=== PATIENT | female | born 1995 | race Caucasian/White ===

== ENCOUNTER 2016-08-14 02:34 | Emergency (ER) | payer SELFPAY ==
[2016-08-14] MEDS ORDERED: Albuterol-Ipratrop 3 mg / 0.5 (3 ml) UD ONE ×2 (02:42→03:04)
[2016-08-14] MEDS ORDERED: Sodium Chloride 0.9% 1,000 ML IV ONE (03:05)
--- NOTE | 2016-08-14 03:05 | C.PDOC ---
Time Seen by Provider: 08/14/16 03:04 Chief Complaint (Nursing): Shortness Of Breath Past Medical History Vital Signs: Last Vital Signs Temp 97.8 F 08/14/16 02:52 Pulse 110 H 08/14/16 02:52 Resp 26 H 08/14/16 02:52 BP 103/73 08/14/16 02:52 Pulse Ox 95 08/14/16 02:52 - Medical History PMH: Anemia, Asthma Family History: States: Unknown Family Hx - Social History Hx Alcohol Use: No Hx Substance Use: Yes (marijuana) - Immunization History Hx Tetanus Toxoid Vaccination: No Hx Influenza Vaccination: No Hx Pneumococcal Vaccination: No ED Course And Treatment O2 Sat by Pulse Oximetry: 95 Disposition Counseled Patient/Family Regarding: Studies Performed, Diagnosis - Disposition Disposition Time: 03:05
[2016-08-14] MEDS ORDERED: Sodium Chloride 0.9% 1,000 ML ONE (03:07)
[2016-08-14] MEDS: Albuterol-Ipratrop 3 mg / 0.5 (3 ml) UD IH SCH ×3 (03:08→03:47)
--- NOTE | 2016-08-14 03:15 | C.PDOC ---
History Of Present Illness Pt presents with worsening wheezing over the last 3-4 hours. Has used inhaler at home, but still sob. Speaking in complete sentences. No f/c/n/v Time Seen by Provider: 08/14/16 03:04 Chief Complaint (Nursing): Shortness Of Breath History Per: Patient History/Exam Limitations: no limitations Onset/Duration Of Symptoms: Hrs (3) Current Symptoms Are (Timing): Still Present Associated Symptoms: Dyspnea, Cough Preciptating Factors: [place] In Weather, Exposure To: (smoke) Severity: Moderate Pain Scale Rating Of: 5 Recent travel outside of the [place]: No Additional History Per: Patient Past Medical History Reviewed: Historical Data, Nursing Documentation, Vital Signs Vital Signs: Last Vital Signs Temp 97.8 F 08/14/16 02:52 Pulse 110 H 08/14/16 02:52 Resp 26 H 08/14/16 03:30 BP 103/73 08/14/16 02:52 Pulse Ox 95 08/14/16 03:30 - Medical History PMH: Anemia, Asthma Family History: States: No Known Family Hx - Social History Hx Alcohol Use: No Hx Substance Use: Yes (marijuana) - Immunization History Hx Tetanus Toxoid Vaccination: No Hx Influenza Vaccination: No Hx Pneumococcal Vaccination: No Review Of Systems Constitutional: Negative for: Fever, Chills ENT: Negative for: Throat Pain Cardiovascular: Negative for: Chest Pain Respiratory: Positive for: Cough, Shortness of Breath, Wheezing Gastrointestinal: Negative for: Nausea, Vomiting, Abdominal Pain Musculoskeletal: Negative for: Back Pain Skin: Negative for: Rash, Lesions, Jaundice, Bruising Neurological: Negative for: Weakness Psych: Negative for: Anxiety Physical Exam - Physical Exam Appears: Non-toxic Skin: Normal Color Oral Mucosa: Moist Neck: Supple Chest: Symmetrical Cardiovascular: Rhythm Regular Respiratory: Decreased Breath Sounds, Wheezing Gastrointestinal/Abdominal: Soft, No Tenderness, No Distention Back: Normal Inspection Extremity: Normal ROM Neurological/Psych: Oriented x3, Normal Speech, Normal Cognition Gait: Steady ED Course And Treatment O2 Sat by Pulse Oximetry: 95 Pulse Ox Interpretation: Normal Progress Note: alison hartman Reevaluation Time: 04:29 Reassessment Condition: Improved Critical Care Time - Critical Care Note Total Time (in mins): 30 Documented critical care: time excludes all time spent performing seperately billable procedures. Disposition Counseled Patient/Family Regarding: Studies Performed, Diagnosis, Need For Followup, Rx Given - Disposition Referrals: Virgilio Guadalupe MD [Staff Provider] - Disposition: HOME/ ROUTINE Disposition Time: 03:15 Condition: FAIR Prescriptions: Albuterol HFA [Ventolin HFA 90 mcg/actuation (8 g)] 2 puff IH [id number] #1 puff Prednisone [Deltasone] 20 mg PO DAILY #5 tablet Instructions: Asthma (DC) - Clinical Impression Clinical Impression: Exacerbation of asthma
[2016-08-14] MEDS ORDERED: Albuterol-Ipratrop 3 mg / 0.5 (3 ml) UD INH STA (04:35)
[2016-08-14 05:06] VITALS: BP 116/72; PULSE 156; RESP 20; TEMP 98.1; O2SAT 98
== END 2016-08-14 05:05 | disposition home or self-care (01) ==
LOC: C.ER 02:34
DX: J45.901 Unspecified asthma with (acute) exacerbation (principal)
CPT/HCPCS: 94150; 94640; 96374; 99284; J2930; J7040

== ENCOUNTER 2017-06-28 08:54 | Observation (INO) | payer MEDICAID, OTHER ==
[2017-06-28 09:04] VITALS: BMI 22.3
[2017-06-28] MEDS ORDERED: Sodium Chloride 0.9% 1,000 ML IV ONE (09:19)
[2017-06-28 09:43] LABS: BASO % 0.6 % (0.0-2.0); EOS % 1.1 % (0.0-4.0); LYMPH # 0.7 K/uL (1.0-4.3); LYMPH % 27.9 % (20.0-40.0); MEAN CORPUSCULAR HEMOGLOBIN 23.4 pg (27.0-31.0); MEAN CORPUSCULAR HGB CONC 32.2 g/dL (33.0-37.0); MEAN PLATELET VOLUME 8.7 fL (7.2-11.7); MONO # 0.4 K/uL (0.0-0.8); NEUT # 1.5 K/uL (1.8-7.0); NEUT % 56.4 % (50.0-75.0); NRBC % 0.1 % (0.0-2.0); RBC 5.13 Mil/uL (3.80-5.20); RED CELL DISTRIBUTION WIDTH 18.4 % (11.5-14.5); WHITE BLOOD COUNT 2.6 K/uL (4.8-10.8)
--- NOTE | 2017-06-28 09:43 | RAD ---
HISTORY: SOB COMPARISON: Chest x-ray performed 10/14/15 TECHNIQUE: Chest, one view. FINDINGS: LUNGS: Subtle opacity at the left lung base may reflect atelectasis or infiltrate. Please note that chest x-ray has limited sensitivity for the detection of pulmonary masses. PLEURA: No significant pleural effusion identified. No definite pneumothorax . CARDIOVASCULAR: Heart size appears within normal limits. OSSEOUS STRUCTURES: No acute osseous abnormality identified. VISUALIZED UPPER ABDOMEN: Unremarkable. OTHER FINDINGS: None. IMPRESSION: Subtle opacity at the left lung base may reflect atelectasis or infiltrate. Correlate clinically.
[2017-06-28 09:46] LABS: HCG,QUALITATIVE URINE NEGATIVE (NEGATIVE)
[2017-06-28 09:48] LABS: MEAN CELL VOLUME 72.7 fL (81.0-99.0)
[2017-06-28] MEDS ORDERED: Sodium Chloride 0.9% 1,000 ML ONE ×3 (09:55→12:34)
[2017-06-28 09:57] LABS: ALB/GLOB RATIO 1.3 (1.0-2.1); ALBUMIN 4.4 g/dL (3.5-5.0); ALT/SGPT 25 U/L (9-52); AST/SGOT 29 U/L (14-36); BLOOD UREA NITROGEN 9 mg/dL (7-17); CALCIUM 8.9 mg/dl (8.6-10.4); GFR AFRICAN-AMERICAN > 60; GFR NON-AFRICAN AMERICAN > 60; SQUAMOUS EPITHIAL 48 /hpf (0-5); URINE BACTERIA RARE (<OCC); URINE BILIRUBIN NEGATIVE (NEGATIVE); URINE BLOOD NEGATIVE (NEGATIVE); URINE CLARITY Hazy (Clear); URINE COLOR Yellow (YELLOW); URINE GLUCOSE (UA) NORMAL (Normal); URINE LEUKOCYTE ESTERASE NEG Leu/uL (Negative); URINE NITRATE NEGATIVE (NEGATIVE); URINE PROTEIN 1+ mg/dL (NEGATIVE); URINE UROBILINOGEN NORMAL mg/dL (0.2-1.0)
[2017-06-28 10:07] LABS: VENOUS BLOOD GAS BASE EXCESS -2.4 mmol/L (0.0-2.0); VENOUS BLOOD GAS PCO2 42 mmHg (40-60); VENOUS BLOOD GAS PO2 24 mm/Hg (30-55); VENOUS BLOOD PH 7.35 (7.32-7.43)
[2017-06-28] MEDS ORDERED: Albuterol 0.083% Inhal Sol (2.5 mg/3 mL) UD IH STA (10:16)
--- NOTE | 2017-06-28 10:23 | C.PDOC ---
History Of Present Illness 22 y/o female with PMHx of Anemia and Asthma presents to ED with complaints of generalized weakness, nausea, fever and cough for 2 days. Patient has history of pneumonia last month with admission to hospital. Patient notes sick contacts at home and denies abdominal pain, sob, diarrhea or any other complaints at this time. Chief Complaint (Nursing): Cough, Cold, Congestion History Per: Patient History/Exam Limitations: no limitations Onset/Duration Of Symptoms: Days Current Symptoms Are (Timing): Still Present Past Medical History Reviewed: Historical Data, Nursing Documentation, Vital Signs Vital Signs: Last Vital Signs Temp 99.5 F 06/28/17 09:04 Pulse 98 H 06/28/17 09:52 Resp 26 H 06/28/17 09:52 BP 103/58 L 06/28/17 09:52 Pulse Ox 95 06/28/17 10:49 - Medical History PMH: Anemia, Asthma Surgical History: No Surg Hx - [facility] Procedures INTRODUCTION OF SERUM/TOX/VACCINE INTO MUSCLE, PERC APPROACH (05/06/17) Family History: States: No Known Family Hx - Social History Hx Alcohol Use: No Hx Substance Use: No - Immunization History Hx Tetanus Toxoid Vaccination: No Hx Influenza Vaccination: Yes Hx Pneumococcal Vaccination: No Review Of Systems Constitutional: Positive for: Fever. Negative for: Chills Respiratory: Positive for: Cough Gastrointestinal: Positive for: Nausea. Negative for: Vomiting, Abdominal Pain , Diarrhea Neurological: Positive for: Weakness Physical Exam - Physical Exam Appears: Non-toxic, No Acute Distress Skin: Warm, Dry, Pale Head: Atraumatic, Normacephalic Eye(s): bilateral: Normal Inspection, EOMI Ear(s): Bilateral: Normal Nose: Normal Oral Mucosa: Moist Throat: Normal, No Erythema, No Exudate Neck: Supple Chest: Symmetrical Cardiovascular: Rhythm Regular Respiratory: Normal Breath Sounds, No Accessory Muscle Use, No Rales, No Rhonchi , No Wheezing Gastrointestinal/Abdominal: Soft, No Tenderness, No Guarding, No Rebound Neurological/Psych: Oriented x3 Gait: Steady ED Course And Treatment - Laboratory Results Result Diagrams: 06/28/17 09:38 06/28/17 09:38 O2 Sat by Pulse Oximetry: 95 (RA) Pulse Ox Interpretation: Normal - Other Rad CXR X-Ray: Viewed By Me, Read By Radiologist Interpretation: HISTORY: SOB. COMPARISON: Chest x-ray performed 10/14/15. TECHNIQUE: Chest, one view. FINDINGS: LUNGS: Subtle opacity at the left lung base may reflect atelectasis or infiltrate. Please note that chest x-ray has limited sensitivity for the detection of pulmonary masses. PLEURA: No significant pleural effusion identified. No definite pneumothorax . CARDIOVASCULAR: Heart size appears within normal limits. OSSEOUS STRUCTURES: No acute osseous abnormality identified. VISUALIZED UPPER ABDOMEN: Unremarkable. OTHER FINDINGS: None. IMPRESSION: Subtle opacity at the left lung base may reflect atelectasis or infiltrate. Correlate clinically. Progress Note: Albuterol, Toradol, Zofran, Iv fluids administered. Bisque Cleaner and Blood culture. On re evaluation patient state she has a headache and difficulty breathing. Disposition - Disposition Forms: [employer] ([employer]) - PA / DIRECTOR WRITING / Resident Statement MD/DO has reviewed & agrees with the documentation as recorded. - Scribe Statement The provider has reviewed the documentation as recorded by the Daliaibmichela Estevez All medical record entries made by the Daliaibe were at my direction and personally dictated by me. I have reviewed the chart and agree that the record accurately reflects my personal performance of the history, physical exam, medical decision making, and the department course for this patient. I have also personally directed, reviewed, and agree with the discharge instructions and disposition.
[2017-06-28] MEDS ORDERED: Albuterol 0.083% Inhal Sol (2.5 mg/3 mL) UD ONE ×2 (10:58→13:54)
[2017-06-28] MEDS: Sodium Chloride 0.9% 1,000 ML IV ONE ×2 (10:58→18:46)
[2017-06-28] MEDS ORDERED: Azithromycin 500 MG in Sodium Chloride 0.9% 250 ML IVPB STA (12:22)
[2017-06-28] MEDS: Sodium Chloride 0.9% 1,000 ML IV SCH (12:32)
[2017-06-28] MEDS: Albuterol 0.083% Inhal Sol (2.5 mg/3 mL) UD INH SCH ×2 (13:59→20:03)
[2017-06-28 17:10] VITALS: RESP 20
--- NOTE | 2017-06-28 23:46 | CP.PCM.HP ---
History of Present Illness - History of Present Illness History of Present Illness: Chief Complaint: Cough, Cold, Congestion, shortness of breath HPI: 22 y/o female with PMHx of Anemia and Bronchial Asthma complaint with diet, medication and follow up presents to ED with complaints of generalized weakness, nausea, fever and cough for 2 days. Patient has history of pneumonia last month with admission to hospital. Patient notes sick contacts at home and denies abdominal pain, sob, diarrhea or any other complaints at this time. Present on Admission - Present on Admission Any Indicators Present on Admission: Yes Review of Systems - Review of Systems Systems not reviewed;Unavailable: Acuity of Condition - Constitutional Constitutional: Anorexia, Fatigue, Fever, Lethargy, Malaise - EENT Eyes: absent: As Per HPI, Blind Spots, Blurred Vision, Change in Vision, Decreased Night Vision, Diplopia, Discharge, Dry Eye, Exophthalmos, Floaters, Irritation, Itchy Eyes, Loss of Peripheral Vision, Pain, Photophobia, Requires Corrective Lenses, Sees Flashes, Spots in Vision, Tunnel Vision, Other Visual Disturbances, Loss of Vision, Other Nose/Mouth/Throat: Nasal Congestion, Nasal Discharge, Dry Mouth - Cardiovascular Cardiovascular: absent: As Per HPI, Acrocyanosis, Chest Pain, Chest Pain at Rest , Chest Pain with Activity, Claudication, Diaphoresis, Dyspnea, Dyspnea on Exertion, Edema, Irregular Heart Rhythm, Pain Radiating to Arm/Neck/Jaw, Leg Edema, Leg Ulcers, Lightheadedness, Orthopnea, Palpitations, Paroxysmal Nocturnal Dyspnea, Pedal Edema, Radiating Pain, Rapid Heart Rate, Slow Heart Rate, Syncope, Other - Respiratory Respiratory: Cough, Dyspnea - Gastrointestinal Gastrointestinal: absent: As Per HPI, Abdominal Pain, Belching, Bloating, Change in Bowel Habits, Change in Stool Character, Coffee Ground Emesis, Constipation, Cramping, Diarrhea, Dyspepsia, Dysphagia, Early Satiety, Excessive Flatus, Fecal Incontinence, Heartburn, Hematemesis, Hematochezia, Loose Stools, Melena, Nausea, Odynophagia, Temesmus, Vomiting, Other - Genitourinary Genitourinary: absent: As Per HPI, Change in Urinary Stream, Difficulty Urinating, Dysuria, Flank Pain, Hematuria, Pyuria, Nocturia, Urinary Incontinence, Urinary Frequency, Urinary Hesitance, Urinary Urgency, Voiding Freq/Small Amts, Freq UTI, Hx Renal/Bladder Calculi, Hx /Renal Surgery, Bladder Distension, Other Past Patient History - Infectious Disease Hx of Infectious Diseases: None - Past Medical History & Family History Past Medical History?: Yes - Past Social History Smoking Status: Never Smoked - CARDIAC Hx Cardiac Disorders: No - PULMONARY Hx Asthma: Yes - NEUROLOGICAL Hx Neurological Disorder: No - HEENT Hx HEENT Problems: No - RENAL Hx Chronic Kidney Disease: No - ENDOCRINE/METABOLIC Hx Endocrine Disorders: No - HEMATOLOGICAL/ONCOLOGICAL Hx Anemia: Yes - INTEGUMENTARY Hx Dermatological Problems: No - MUSCULOSKELETAL/RHEUMATOLOGICAL Hx Musculoskeletal Disorders: No - GASTROINTESTINAL Hx Gastrointestinal Disorders: No - GENITOURINARY/GYNECOLOGICAL Hx Genitourinary Disorders: No - PSYCHIATRIC Hx Substance Use: No - SURGICAL HISTORY Hx Surgeries: No - ANESTHESIA Hx Anesthesia: No Meds Allergies/Adverse Reactions: Allergies Allergy/AdvReac Type Severity Reaction Status Date / Time No Known Allergies Allergy Verified 06/28/17 09:03 Physical Exam - Constitutional Appears: No Acute Distress - Head Exam Head Exam: ATRAUMATIC, NORMAL INSPECTION, NORMOCEPHALIC - Eye Exam Eye Exam: EOMI, Normal appearance, PERRL Pupil Exam: NORMAL ACCOMODATION, PERRL - Respiratory Exam Respiratory Exam: Decreased Breath Sounds, Rhonchi - Cardiovascular Exam Cardiovascular Exam: Tachycardia, +S1, +S2 - Psychiatric Exam Psychiatric exam: Anxious - Skin Skin Exam: Dry, Intact, Normal Color, Warm Results - Vital Signs Recent Vital Signs: Last Vital Signs Temp 98.2 F 06/28/17 17:10 Pulse 88 06/28/17 17:10 Resp 20 06/28/17 17:10 BP 97/61 L 06/28/17 17:10 Pulse Ox 95 06/28/17 17:10 - Labs Result Diagrams: 06/29/17 07:19 06/29/17 07:19 Labs: Laboratory Results - last 24 hr 06/28/17 06/28/17 06/28/17 09:38 09:38 09:38 WBC 2.6 L RBC 5.13 Hgb 12.0 Hct 37.3 MCV 72.7 L D MCH 23.4 L MCHC 32.2 L RDW 18.4 H Plt Count 255 MPV 8.7 Neut % (Auto) 56.4 Lymph % (Auto) 27.9 [place] % (Auto) 14.0 H Eos % (Auto) 1.1 Baso % (Auto) 0.6 Neut # 1.5 L Lymph # 0.7 L [place] # 0.4 Eos # 0.0 Baso # 0.0 pO2 VBG pH VBG pCO2 VBG HCO3 VBG Total CO2 VBG O2 Sat (Calc) VBG Base Excess VBG Potassium Glucose Lactate Sodium 138 Potassium 4.4 Chloride 102 Carbon Dioxide 24 Anion Gap 17 BUN 9 Creatinine 0.7 Est GFR ( Amer) > 60 Est GFR (Non-Af Amer) > 60 Random Glucose 93 Calcium 8.9 Total Bilirubin 0.6 AST 29 ALT 25 Alkaline Phosphatase 53 Total Protein 7.8 Albumin 4.4 Globulin 3.4 Albumin/Globulin Ratio 1.3 Venous Blood Potassium Urine Color Yellow Urine Clarity Hazy Urine pH 5.0 Ur Specific [place] 1.026 Urine Protein 1+ H Urine Glucose (UA) Normal Urine Ketones 1+ H Urine Blood Negative Urine Nitrate Negative Urine Bilirubin Negative Urine Urobilinogen Normal Ur Leukocyte Esterase Neg Urine WBC (Auto) 3 Urine RBC (Auto) 4 H Ur Squamous Epith Cells 48 H Urine Bacteria Rare Urine HCG, Qual Negative Influenza Typ A,B (EIA) 06/28/17 06/28/17 09:43 10:01 WBC RBC Hgb Hct MCV MCH MCHC RDW Plt Count MPV Neut % (Auto) Lymph % (Auto) [place] % (Auto) Eos % (Auto) Baso % (Auto) Neut # Lymph # [place] # Eos # Baso # pO2 24 L VBG pH 7.35 VBG pCO2 42 VBG HCO3 21.5 VBG Total CO2 24.5 VBG O2 Sat (Calc) 46.7 VBG Base Excess -2.4 L VBG Potassium 3.7 Glucose 85 Lactate 1.2 Sodium 141.0 Potassium Chloride 105.0 Carbon Dioxide Anion Gap BUN Creatinine Est GFR ( Amer) Est GFR (Non-Af Amer) Random Glucose Calcium Total Bilirubin AST ALT Alkaline Phosphatase Total Protein Albumin Globulin Albumin/Globulin Ratio Venous Blood Potassium 3.7 Urine Color Urine Clarity Urine pH Ur Specific [place] Urine Protein Urine Glucose (UA) Urine Ketones Urine Blood Urine Nitrate Urine Bilirubin Urine Urobilinogen Ur Leukocyte Esterase Urine WBC (Auto) Urine RBC (Auto) Ur Squamous Epith Cells Urine Bacteria Urine HCG, Qual Influenza Typ A,B (EIA) Negative for flu a/b Assessment & Plan (1) Asthma exacerbation Assessment and Plan: pt has been started on medical management Rule out pnemonia Status: Acute (2) Pneumonia Assessment and Plan: less likely Status: Acute
[2017-06-29] MEDS ORDERED: guaiFENesin 100 mg/5 ml Syrup UD PO ONE (00:36)
[2017-06-29] MEDS: Albuterol 0.083% Inhal Sol (2.5 mg/3 mL) UD INH SCH ×4 (01:18→19:19)
[2017-06-29] MEDS: Sodium Chloride 0.9% 1,000 ML IV SCH ×4 (06:30→21:26)
[2017-06-29 08:01] LABS: BLOOD UREA NITROGEN 6 mg/dL (7-17); CALCIUM 8.3 mg/dl (8.6-10.4); GFR AFRICAN-AMERICAN > 60; GFR NON-AFRICAN AMERICAN > 60
[2017-06-29 08:07] LABS: BASO % 0.6 % (0.0-2.0); EOS # 0.1 K/uL (0.0-0.7); EOS % 5.6 % (0.0-4.0); LYMPH # 0.9 K/uL (1.0-4.3); LYMPH % 42.1 % (20.0-40.0); MEAN CELL VOLUME 72.2 fL (81.0-99.0); MEAN CORPUSCULAR HEMOGLOBIN 23.4 pg (27.0-31.0); MEAN CORPUSCULAR HGB CONC 32.4 g/dL (33.0-37.0); MEAN PLATELET VOLUME 9.2 fL (7.2-11.7); MONO # 0.2 K/uL (0.0-0.8); MONO % 10.9 % (0.0-10.0); NEUT # 0.9 K/uL (1.8-7.0); NEUT % 40.8 % (50.0-75.0); NRBC % 0.4 % (0.0-2.0); RBC 4.22 Mil/uL (3.80-5.20); WHITE BLOOD COUNT 2.2 K/uL (4.8-10.8)
[2017-06-29 08:14] LABS: HEMOGLOBIN 9.9 g/dL (11.0-16.0)
[2017-06-29] MEDS: Azithromycin 500 MG in Sodium Chloride 0.9% 250 ML IVPB SCH (10:12)
[2017-06-29] MEDS: guaiFENesin 100 mg/5 ml Syrup UD PO SCH ×2 (10:12→14:08)
--- NOTE | 2017-06-29 12:00 | CP.PCM.PN ---
Subjective - Date & Time of Evaluation Date of Evaluation: 06/29/17 Time of Evaluation: 19:40 - Subjective Subjective: pt seen and examined today, less cough, less short of breath, on Iv fluids and medical management Objective - Vital Signs/Intake and Output Vital Signs (last 24 hours): Temp Pulse Resp BP Pulse Ox 98.7 F 82 20 102/64 95 06/29/17 07:53 06/29/17 07:53 06/29/17 07:53 06/29/17 07:53 06/29/17 07:53 Intake and Output: 06/29/17 06/29/17 06:59 18:59 Intake Total 1900 Balance 1900 - Medications Medications: Current Medications Acetaminophen (Tylenol 325mg Tab) 650 mg PO Q4 PRN PRN Reason: Pain, moderate (4-7) Last Admin: 06/29/17 00:15 Dose: 650 mg Albuterol Sulfate (Albuterol 0.083% Inhal Agueda (2.5 Mg/3 Ml) Ud) 2.5 mg INH RQ6 [facility] Last Admin: 06/29/17 07:25 Dose: Not Given Guaifenesin (Robitussin) 100 mg PO QID [facility] Last Admin: 06/29/17 10:12 Dose: 100 mg Ceftriaxone Sodium 1 gm/ (Sodium Chloride) 100 mls @ 100 mls/hr IVPB Q24H [facility] Last Admin: 06/28/17 12:58 Dose: 100 mls/hr Sodium Chloride (Sodium Chloride 0.9%) 1,000 mls @ 100 mls/hr IV .Q10H [facility] Last Admin: 06/29/17 10:12 Dose: Not Given Azithromycin 500 mg/ Sodium (Chloride) 250 mls @ 250 mls/hr IVPB DAILY [facility] Last Admin: 06/29/17 10:12 Dose: 250 mls/hr - Labs Labs: 06/29/17 07:19 06/29/17 07:19 - Constitutional Appears: No Acute Distress - Head Exam Head Exam: ATRAUMATIC, NORMAL INSPECTION, NORMOCEPHALIC - Eye Exam Eye Exam: EOMI, Normal appearance, PERRL Pupil Exam: NORMAL ACCOMODATION, PERRL - Respiratory Exam Respiratory Exam: Decreased Breath Sounds, Rales, Rhonchi - Cardiovascular Exam Cardiovascular Exam: REGULAR RHYTHM, +S1, +S2. absent: Murmur - GI/Abdominal Exam GI & Abdominal Exam: Soft, Normal Bowel Sounds. absent: Tenderness Assessment and Plan (1) Asthma exacerbation Status: Acute (2) Pneumonia Status: Acute
--- NOTE | 2017-06-29 12:21 | CP.PCM.PN ---
Subjective - Date & Time of Evaluation Date of Evaluation: 06/29/17 Time of Evaluation: 18:40 - Subjective Subjective: pt seen and examined Objective - Vital Signs/Intake and Output Vital Signs (last 24 hours): Temp Pulse Resp BP Pulse Ox 98.7 F 82 20 102/64 95 06/29/17 07:53 06/29/17 07:53 06/29/17 07:53 06/29/17 07:53 06/29/17 07:53 Intake and Output: 06/29/17 06/29/17 06:59 18:59 Intake Total 1900 Balance 1900 - Medications Medications: Current Medications Acetaminophen (Tylenol 325mg Tab) 650 mg PO Q4 PRN PRN Reason: Pain, moderate (4-7) Last Admin: 06/29/17 00:15 Dose: 650 mg Albuterol Sulfate (Albuterol 0.083% Inhal Agueda (2.5 Mg/3 Ml) Ud) 2.5 mg INH RQ6 [facility] Last Admin: 06/29/17 07:25 Dose: Not Given Guaifenesin (Robitussin) 100 mg PO QID [facility] Last Admin: 06/29/17 10:12 Dose: 100 mg Ceftriaxone Sodium 1 gm/ (Sodium Chloride) 100 mls @ 100 mls/hr IVPB Q24H [facility] Last Admin: 06/28/17 12:58 Dose: 100 mls/hr Sodium Chloride (Sodium Chloride 0.9%) 1,000 mls @ 100 mls/hr IV .Q10H [facility] Last Admin: 06/29/17 10:12 Dose: Not Given Azithromycin 500 mg/ Sodium (Chloride) 250 mls @ 250 mls/hr IVPB DAILY [facility] Last Admin: 06/29/17 10:12 Dose: 250 mls/hr - Labs Labs: 06/29/17 07:19 06/29/17 07:19
[2017-06-29 16:23] LABS: FOLATE 14.8 ng/mL
[2017-06-29] MEDS: Promethazine 12.5 mg/10 ml Syrup PO PRN ×2 (16:49→22:36)
[2017-06-30] MEDS: Albuterol 0.083% Inhal Sol (2.5 mg/3 mL) UD INH SCH ×2 (01:19→07:31)
[2017-06-30] MEDS: Sodium Chloride 0.9% 1,000 ML IV SCH ×2 (04:40→07:03)
[2017-06-30] MEDS: Promethazine 12.5 mg/10 ml Syrup PO PRN (04:45)
[2017-06-30 08:23] VITALS: BP 96/60; PULSE 78; TEMP 97.3; O2SAT 98
[2017-06-30] MEDS: Azithromycin 500 MG in Sodium Chloride 0.9% 250 ML IVPB SCH (10:28)
--- NOTE | 2017-06-30 16:38 | CP.PCM.PN ---
Objective - Vital Signs/Intake and Output Vital Signs (last 24 hours): Temp Pulse Resp BP Pulse Ox 97.3 F L 78 20 96/60 L 98 06/30/17 08:21 06/30/17 08:21 06/30/17 08:21 06/30/17 08:21 06/30/17 08:21 Intake and Output: 06/30/17 06/30/17 06:59 18:59 Intake Total 1900 Balance 1900 - Labs Labs: 06/29/17 07:19 06/29/17 07:19 Assessment and Plan - Assessment and Plan (Free Text) Assessment: Patient is seen and examined. Alert and orientedx3, cough has been.
--- NOTE | 2017-06-30 22:31 | CP.PCM.DIS ---
Provider - Provider Date of Admission: 06/28/17 12:23 Attending physician: Virgilio Guadalupe MD Diagnosis - Discharge Diagnosis (1) Asthma exacerbation Status: Acute (2) Pneumonia Status: Acute Hospital Course - Lab Results Lab Results: Micro Results 06/28/17 10:15 Blood Blood Culture - Preliminary NO GROWTH AFTER 48 HOURS 06/28/17 09:45 Blood Blood Culture - Preliminary NO GROWTH AFTER 48 HOURS Most Recent Lab Values WBC 2.2 K/uL (4.8-10.8) L 06/29/17 07:19 RBC 4.22 Mil/uL (3.80-5.20) 06/29/17 07:19 Hgb 9.9 g/dL (11.0-16.0) L D 06/29/17 07:19 Hct 30.5 % (34.0-47.0) L 06/29/17 07:19 MCV 72.2 fL (81.0-99.0) L 06/29/17 07:19 MCH 23.4 pg (27.0-31.0) L 06/29/17 07:19 MCHC 32.4 g/dL (33.0-37.0) L 06/29/17 07:19 RDW 18.0 % (11.5-14.5) H 06/29/17 07:19 Plt Count 201 K/uL (130-400) 06/29/17 07:19 MPV 9.2 fL (7.2-11.7) 06/29/17 07:19 Neut % (Auto) 40.8 % (50.0-75.0) L 06/29/17 07:19 Lymph % (Auto) 42.1 % (20.0-40.0) H 06/29/17 07:19 [place] % (Auto) 10.9 % (0.0-10.0) H 06/29/17 07:19 Eos % (Auto) 5.6 % (0.0-4.0) H 06/29/17 07:19 Baso % (Auto) 0.6 % (0.0-2.0) 06/29/17 07:19 Neut # (Auto) 0.9 K/uL (1.8-7.0) L 06/29/17 07:19 Lymph # (Auto) 0.9 K/uL (1.0-4.3) L 06/29/17 07:19 [place] # (Auto) 0.2 K/uL (0.0-0.8) 06/29/17 07:19 Eos # (Auto) 0.1 K/uL (0.0-0.7) 06/29/17 07:19 Baso # (Auto) 0.0 K/uL (0.0-0.2) 06/29/17 07:19 Retic Count 0.5 % (0.5-1.5) 06/29/17 15:07 pO2 24 mm/Hg (30-55) L 06/28/17 10:01 VBG pH 7.35 (7.32-7.43) 06/28/17 10:01 VBG pCO2 42 mmHg (40-60) 06/28/17 10:01 VBG HCO3 21.5 mmol/L 06/28/17 10:01 VBG Total CO2 24.5 mmol/L (22-28) 06/28/17 10:01 VBG O2 Sat (Calc) 46.7 % (40-65) 06/28/17 10:01 VBG Base Excess -2.4 mmol/L (0.0-2.0) L 06/28/17 10:01 VBG Potassium 3.7 mmol/L (3.6-5.2) 06/28/17 10:01 Sodium 141.0 mmol/l (132-148) 06/28/17 10:01 Chloride 105.0 mmol/L (98-107) 06/28/17 10:01 Glucose 85 mg/dl (65-105) 06/28/17 10:01 Lactate 1.2 mmol/L (0.7-2.1) 06/28/17 10:01 Sodium 136 mmol/L (132-148) 06/29/17 07:19 Potassium 4.1 mmol/L (3.6-5.2) 06/29/17 07:19 Chloride 102 mmol/L (98-107) 06/29/17 07:19 Carbon Dioxide 24 mmol/L (22-30) 06/29/17 07:19 Anion Gap 14 (10-20) 06/29/17 07:19 BUN 6 mg/dL (7-17) L 06/29/17 07:19 Creatinine 0.6 mg/dL (0.7-1.2) L 06/29/17 07:19 Est GFR ( Amer) > 60 06/29/17 07:19 Est GFR (Non-Af Amer) > 60 06/29/17 07:19 Random Glucose 80 mg/dL (65-105) 06/29/17 07:19 Calcium 8.3 mg/dl (8.6-10.4) L 06/29/17 07:19 Total Bilirubin 0.6 mg/dL (0.2-1.3) 06/28/17 09:38 AST 29 U/L (14-36) 06/28/17 09:38 ALT 25 U/L (9-52) 06/28/17 09:38 Alkaline Phosphatase 53 U/L (38-126) 06/28/17 09:38 Total Protein 7.8 g/dL (6.3-8.3) 06/28/17 09:38 Albumin 4.4 g/dL (3.5-5.0) 06/28/17 09:38 Globulin 3.4 gm/dL (2.2-3.9) 06/28/17 09:38 Albumin/Globulin Ratio 1.3 (1.0-2.1) 06/28/17 09:38 Folate 14.8 ng/mL 06/29/17 15:01 TSH 3rd Generation 0.61 mIU/L (0.46-4.68) 06/29/17 15:01 Venous Blood Potassium 3.7 mmol/L (3.6-5.2) 06/28/17 10:01 Urine Color Yellow (YELLOW) 06/28/17 09:38 Urine Clarity Hazy (Clear) 06/28/17 09:38 Urine pH 5.0 (5.0-8.0) 06/28/17 09:38 Ur Specific [place] 1.026 (1.003-1.030) 06/28/17 09:38 Urine Protein 1+ mg/dL (NEGATIVE) H 06/28/17 09:38 Urine Glucose (UA) Normal mg/dL (Normal) 06/28/17 09:38 Urine Ketones 1+ mg/dL (NEGATIVE) H 06/28/17 09:38 Urine Blood Negative (NEGATIVE) 01/30/18 09:38 Urine Nitrate Negative (NEGATIVE) 06/28/17 09:38 Urine Bilirubin Negative (NEGATIVE) 06/28/17 09:38 Urine Urobilinogen Normal mg/dL (0.2-1.0) 06/28/17 09:38 Ur Leukocyte Esterase Neg [place]arlene/uL (Negative) 06/28/17 09:38 Urine WBC (Auto) 3 /hpf (0-5) 06/28/17 09:38 Urine RBC (Auto) 4 /hpf (0-3) H 06/28/17 09:38 Ur Squamous Epith Cells 48 /hpf (0-5) H 06/28/17 09:38 Urine Bacteria Rare (<OCC) 06/28/17 09:38 Urine HCG, Qual Negative (NEGATIVE) 06/28/17 09:38 Influenza Typ A,B (EIA) Negative for flu a/b (NEGATIVE) 06/28/17 09:43 Discharge Exam - Head Exam Head Exam: ATRAUMATIC, NORMAL INSPECTION, NORMOCEPHALIC Discharge Plan - Discharge Medications Prescriptions: Levofloxacin [Levaquin] 500 mg PO DAILY #5 tablet - Follow Up Plan Condition: GOOD Disposition: HOME/ ROUTINE Instructions: Levofloxacin (By mouth), Asthma (DC), Viral Pneumonia (DC), How Your Lungs Work (DC)
--- NOTE | 2017-07-01 04:19 | CARD ---
APPROVED REPORT EKG Measurement Heart [id number] <Conclusion> Sinus tachycardia Otherwise normal ECG
== END 2017-06-30 13:02 | disposition home or self-care (01) ==
LOC: C.ER 08:54 → C.9E 12:23 → C.3T 15:57
PROVIDERS: ADMIT Internal Medicine; ATTEND Internal Medicine
DX: J18.9 Pneumonia, unspecified organism (principal); J45.901 Unspecified asthma with (acute) exacerbation; Z87.01 Personal history of pneumonia (recurrent)
CPT/HCPCS: 36415; 71045; 80048; 80053; 81001; 82746; 82803; 84443; 84703; 85025; 85044; 87040; 87804; 94150; 94640; 96360; 96365; 96374; 99285; G0378; J0456; J0696; J1885; J2405; J7040; J7050

== ENCOUNTER 2017-08-04 18:33 | Emergency (ER) | payer MEDICAID ==
[2017-08-04 18:34] VITALS: BMI 22.3
[2017-08-04] MEDS ORDERED: Albuterol-Ipratrop 3 mg / 0.5 (3 ml) UD INH STA (18:46)
--- NOTE | 2017-08-04 19:19 | C.PDOC ---
History Of Present Illness Patient with a Hx of asthma presents to the ER with a complaint of SOB, associated with a nonproductive cough. Patient is speaking in complete sentences and reports she feels slightly better after initial breathing treatment. Denies fever, chills, nausea, or vomiting. Time Seen by Provider: 08/04/17 19:18 Chief Complaint (Nursing): Shortness Of Breath History Per: Patient History/Exam Limitations: no limitations Onset/Duration Of Symptoms: Hrs Current Symptoms Are (Timing): Still Present Initiating Event: Other (Not known) Current Respiratory Medications: None Severity: Moderate Pain Scale Rating Of: 4 Associated Symptoms: Other ((+) Nonproductive cough. (-) Nausea, Vomiting.). denies: Fever, Chills Recent travel outside of the [place]: No Past Medical History Reviewed: Historical Data, Nursing Documentation, Vital Signs Vital Signs: Last Vital Signs Temp 98.1 F 08/04/17 21:17 Pulse 114 H 08/04/17 21:17 Resp 20 08/04/17 21:17 BP 115/64 08/04/17 21:17 Pulse Ox 93 L 08/04/17 21:17 - Medical History PMH: Anemia, Asthma - [facility] Procedures INTRODUCTION OF SERUM/TOX/VACCINE INTO MUSCLE, PERC APPROACH (05/06/17) Family History: States: No Known Family Hx - Social History Hx Alcohol Use: No Hx Substance Use: No - Immunization History Hx Tetanus Toxoid Vaccination: No Hx Influenza Vaccination: Yes Hx Pneumococcal Vaccination: No Review Of Systems Constitutional: Negative for: Fever, Chills Cardiovascular: Negative for: Chest Pain, Palpitations Respiratory: Positive for: Cough, Shortness of Breath. Negative for: Sputum Gastrointestinal: Negative for: Nausea, Vomiting Physical Exam - Physical Exam Appears: Non-toxic Skin: Warm, Dry Head: Normacephalic Oral Mucosa: Moist Chest: Symmetrical, No Tenderness Cardiovascular: Rhythm Regular Respiratory: No Rales, No Rhonchi, Wheezing (Scattered) Gastrointestinal/Abdominal: Soft, No Tenderness Neurological/Psych: Oriented x3 ED Course And Treatment O2 Sat by Pulse Oximetry: 98 (Room air) Pulse Ox Interpretation: Normal Progress Note: Albuterol nebulizer and prednisone administered. Reevaluation Time: 21:58 Reassessment Condition: Improved Critical Care Time - Critical Care Note Total Time (in mins): 30 Documented critical care: time excludes all time spent performing seperately billable procedures. Disposition Counseled Patient/Family Regarding: Studies Performed, Diagnosis, Need For Followup, Rx Given - Disposition Referrals: [facility] [Outside] [facility] [Outside] Disposition: HOME/ ROUTINE Disposition Time: 19:19 Condition: FAIR Additional Instructions: Please return if symptoms recur Prescriptions: Albuterol/Ipratropium [Duoneb 3 MG/3 Ml-0.5 MG/3 Ml 3 Ml] 3 ml IH QID PRN #50 neb PRN Reason: Wheezing Prednisone [Deltasone] 20 mg PO DAILY #5 tablet Instructions: Asthma, Adult (DC) Forms: [email or web address] (Urdu) - Clinical Impression Clinical Impression: Exacerbation of asthma - Scribe Statement The provider has reviewed the documentation as recorded by the Scribmichela Hadley All medical record entries made by the Daliaibe were at my direction and personally dictated by me. I have reviewed the chart and agree that the record accurately reflects my personal performance of the history, physical exam, medical decision making, and the department course for this patient. I have also personally directed, reviewed, and agree with the discharge instructions and disposition.
[2017-08-04] MEDS ORDERED: Albuterol-Ipratrop 3 mg / 0.5 (3 ml) UD ONE ×2 (19:46→20:11)
[2017-08-04] MEDS: Albuterol-Ipratrop 3 mg / 0.5 (3 ml) UD IH SCH ×3 (20:05→20:55)
[2017-08-04 21:18] VITALS: BP 115/64; PULSE 114; RESP 20; TEMP 98.1
[2017-08-04 22:01] VITALS: O2SAT 98
== END 2017-08-04 22:07 | disposition home or self-care (01) ==
LOC: C.ER 18:33
DX: J45.901 Unspecified asthma with (acute) exacerbation (principal)

== ENCOUNTER 2018-08-28 06:03 | Observation (INO) | payer MEDICAID ==
[2018-08-28 06:03] VITALS: BMI 22.3
[2018-08-28] MEDS ORDERED: Albuterol-Ipratrop 3 mg / 0.5 (3 ml) UD ONE ×2 (06:08→06:39)
[2018-08-28] MEDS ORDERED: Albuterol-Ipratrop 3 mg / 0.5 (3 ml) UD INH STA (06:26)
--- NOTE | 2018-08-28 06:38 | C.PDOC ---
History Of Present Illness 23 year old female presents to the ED c/o cough and wheezing for the past 3 days. Patient reports yesterday she used approximately 10 albuterol nebulizer treatments with no improvement. Patient denies fever, chills, headache, CP, palpitations, weakness, numbness. Time Seen by Provider: 08/28/18 06:17 Chief Complaint (Nursing): Shortness Of Breath History Per: Patient History/Exam Limitations: no limitations Onset/Duration Of Symptoms: Days (3) Current Symptoms Are (Timing): Still Present Associated Symptoms: Cough Recent travel outside of the [place]: No Additional History Per: Patient Past Medical History Reviewed: Historical Data, Nursing Documentation, Vital Signs Vital Signs: Last Vital Signs Temp 98.0 F 08/28/18 06:09 Pulse 118 H 08/28/18 06:09 Resp 26 H 08/28/18 06:09 BP 128/99 H 08/28/18 06:09 Pulse Ox 94 L 08/28/18 06:09 - Medical History PMH: Anemia, Asthma Denies: HIV, Chronic Kidney Disease Surgical History: No Surg Hx - [facility] Procedures INTRODUCTION OF SERUM/TOX/VACCINE INTO MUSCLE, PERC APPROACH (05/06/17) Family History: States: Unknown Family Hx - Social History Hx Alcohol Use: No Hx Substance Use: No - Immunization History Hx Tetanus Toxoid Vaccination: No Hx Influenza Vaccination: Yes Hx Pneumococcal Vaccination: No Review Of Systems Constitutional: Negative for: Fever, Chills Cardiovascular: Negative for: Chest Pain, Palpitations Respiratory: Positive for: Cough, Shortness of Breath, Wheezing Gastrointestinal: Negative for: Nausea, Vomiting, Abdominal Pain Skin: Negative for: Rash Neurological: Negative for: Weakness, Numbness, Headache, Dizziness Physical Exam - Physical Exam Appears: Non-toxic, In Acute Distress (moderate respiratory distress) Skin: Normal Color, Warm, Dry Head: Atraumatic, Normacephalic Eye(s): bilateral: Normal Inspection Oral Mucosa: Moist Neck: Normal ROM, Supple Chest: Symmetrical Cardiovascular: Rhythm Regular Respiratory: No Rales, No Rhonchi, Wheezing (moderate expiratory ) Gastrointestinal/Abdominal: Soft, No Tenderness Extremity: Normal ROM, No Tenderness, No Swelling Neurological/Psych: Oriented x3, Normal Speech, Normal Cognition Gait: Steady ED Course And Treatment O2 Sat by Pulse Oximetry: 94 Medical Decision Making Medical Decision Making: Plan: * EKG * Labs * Duoneb x 1 * Solumderol 125 mg IVP * UA moderate asthma exacerbation signed over @ 0700 Disposition - Disposition Disposition Time: 07:00 Condition: FAIR Forms: [facility] (Burkinan) - Clinical Impression Clinical Impression: Exacerbation of asthma - Scribe Statement The provider has reviewed the documentation as recorded by the Scribe Franco Reynoso All medical record entries made by the Scribe were at my direction and personally dictated by me. I have reviewed the chart and agree that the record accurately reflects my personal performance of the history, physical exam, medical decision making, and the department course for this patient. I have also personally directed, reviewed, and agree with the discharge instructions and disposition. Physician Patient Turnover Patient Signed Over To: Karyn Lara Handoff Comments: continue treatment, f/u workup and dispo appropriately.
[2018-08-28 06:53] LABS: BASO # 0.1 K/uL (0.0-0.2); BASO % 1.1 % (0.0-2.0); HEMOGLOBIN 11.6 g/dL (11.0-16.0); LYMPH # 2.9 K/uL (1.0-4.3); LYMPH % 31.8 % (20.0-40.0); MEAN CELL VOLUME 77.9 fL (81.0-99.0); MEAN CORPUSCULAR HEMOGLOBIN 24.6 pg (27.0-31.0); MEAN CORPUSCULAR HGB CONC 31.6 g/dL (33.0-37.0); MEAN PLATELET VOLUME 9.4 fL (7.2-11.7); MONO # 0.9 K/uL (0.0-0.8); MONO % 9.6 % (0.0-10.0); NEUT # 3.2 K/uL (1.8-7.0); NEUT % 35.5 % (50.0-75.0); PLATELET COUNT 324 K/uL (130-400); RBC 4.74 Mil/uL (3.80-5.20); RED CELL DISTRIBUTION WIDTH 17.2 % (11.5-14.5); WHITE BLOOD COUNT 9.1 K/uL (4.8-10.8)
[2018-08-28 07:21] LABS: ALB/GLOB RATIO 1.7 (1.0-2.1); ALBUMIN 4.8 g/dL (3.5-5.0); ALT/SGPT 10 U/L (9-52); AST/SGOT 30 U/L (14-36); BLOOD UREA NITROGEN 12 mg/dL (7-17); CALCIUM 9.4 mg/dl (8.6-10.4); GFR NON-AFRICAN AMERICAN > 60
[2018-08-28 08:31] LABS: EOSINOPHIL 18 % (0-4); LYMPHOCYTE 32 % (20-40); MONOCYTE 5 % (0-10); NEUTROPHIL 45 % (50-75); TOTAL CELLS COUNTED 100
[2018-08-28 08:32] LABS: PLATELET ESTIMATE NORMAL (NORMAL)
[2018-08-28 08:33] LABS: ANISOCYTOSIS SLIGHT; HYPOCHROMIC SLIGHT; OVALOCYTES SLIGHT; POLYCHROMIC SLIGHT
--- NOTE | 2018-08-28 08:37 | CP.PCM.HP ---
<Douglas Ha - Last Filed: 08/28/18 11:23> History of Present Illness - History of Present Illness History of Present Illness: PGY-1 History and Physical for Dr. Lei Patient is a 23 year old female with past medical history of asthma requiring 2 past hospitalizations (no prior intubations) presenting to ED with worsening shortness of breath, wheezing, dry cough for the past week. Patient states she was first told she has asthma at age 19 and typically has day-time symptoms nearly every day. This past week, symptoms have worsening, and patient states she has used home albuterol 5-10x/day with minimal relief of symptoms. She states she has albuterol inhaler and nebulizer treatments at home, denies being on steroids though may have taken Advair in past. Symptoms worsen with cold weather, physical exertion. Of note, patient has pets at home--a dog for the past 5 years and a new cat which she got a few months ago. No fevers/chills, headaches, dizziness, chest pain, palpitations, abdominal pain, n/v/d/c. PMHx: asthma PSHx: tonsillectomy Allergies: NKDA Home Meds: as per chart Family Hx: Mom--asthma Social Hx: no alcohol or tobacco use. Occasional marijuana use, denies any other illicit drugs PMD: None (used to see Dr. Guadalupe as of 6 months ago, has since lost her insurance) Present on Admission - Present on Admission Any Indicators Present on Admission: No Review of Systems - Review of Systems All systems: reviewed and no additional remarkable complaints except Review of Systems: as per HPI Past Patient History - Infectious Disease Hx of Infectious Diseases: None - Past Medical History & Family History Past Medical History?: Yes - Past Social History Smoking Status: Never Smoked - CARDIAC Hx Cardiac Disorders: No - PULMONARY Hx Asthma: Yes - NEUROLOGICAL Hx Neurological Disorder: No - HEENT Hx HEENT Problems: No - RENAL Hx Chronic Kidney Disease: No - ENDOCRINE/METABOLIC Hx Endocrine Disorders: No - HEMATOLOGICAL/ONCOLOGICAL Hx Anemia: Yes Hx Human Immunodeficiency Virus (HIV): No - INTEGUMENTARY Hx Dermatological Problems: No - MUSCULOSKELETAL/RHEUMATOLOGICAL Hx Musculoskeletal Disorders: No - GASTROINTESTINAL Hx Gastrointestinal Disorders: No - GENITOURINARY/GYNECOLOGICAL Hx Genitourinary Disorders: No - PSYCHIATRIC Hx Substance Use: No - SURGICAL HISTORY Hx Surgeries: No - ANESTHESIA Hx Anesthesia: No Meds Allergies/Adverse Reactions: Allergies Allergy/AdvReac Type Severity Reaction Status Date / Time No Known Allergies Allergy Verified 08/28/18 06:15 Physical Exam - Constitutional Appears: Non-toxic, No Acute Distress - Head Exam Head Exam: ATRAUMATIC, NORMAL INSPECTION, NORMOCEPHALIC - Eye Exam Eye Exam: EOMI, Normal appearance Pupil Exam: NORMAL ACCOMODATION - ENT Exam ENT Exam: Mucous Membranes Moist, Normal Exam - Neck Exam Neck exam: Positive for: Normal Inspection - Respiratory Exam Respiratory Exam: Wheezes, NORMAL BREATHING PATTERN. absent: Accessory Muscle Use, Respiratory Distress - Cardiovascular Exam Cardiovascular Exam: Tachycardia, REGULAR RHYTHM, +S1, +S2 - GI/Abdominal Exam GI & Abdominal Exam: Normal Bowel Sounds, Soft. absent: Distended, Firm, Guarding, Rebound, Rigid, Tenderness - Extremities Exam Extremities exam: Positive for: normal capillary refill, normal inspection, pedal pulses present. Negative for: calf tenderness, pedal edema - Back Exam Back exam: NORMAL INSPECTION - Neurological Exam Neurological exam: Alert, Normal Gait, Oriented x3 - Skin Skin Exam: Dry, Intact, Normal Color, Warm Results - Vital Signs Recent Vital Signs: Last Vital Signs Temp 97.8 F 08/28/18 07:21 Pulse 106 H 08/28/18 07:21 Resp 22 08/28/18 07:21 BP 102/62 08/28/18 07:21 Pulse Ox 96 08/28/18 07:21 - Labs Result Diagrams: 08/28/18 06:50 08/28/18 06:50 Labs: Laboratory Results - last 24 hr 08/28/18 08/28/18 06:50 06:50 WBC 9.1 D RBC 4.74 Hgb 11.6 Hct 36.9 MCV 77.9 L D MCH 24.6 L MCHC 31.6 L RDW 17.2 H Plt Count 324 D MPV 9.4 Neut % (Auto) 35.5 L Lymph % (Auto) 31.8 [place] % (Auto) 9.6 Eos % (Auto) 22.0 H Baso % (Auto) 1.1 Neut # (Auto) 3.2 Lymph # (Auto) 2.9 [place] # (Auto) 0.9 H Eos # (Auto) 2.0 H Baso # (Auto) 0.1 Neutrophils % (Manual) 45 L Lymphocytes % (Manual) 32 Monocytes % (Manual) 5 Eosinophils % (Manual) 18 H Platelet Estimate Normal Polychromasia Slight Hypochromasia (manual) Slight Anisocytosis (manual) Slight Ovalocytes Slight Sodium 138 Potassium 3.7 Chloride 103 Carbon Dioxide 27 Anion Gap 12 BUN 12 Creatinine 0.6 L Est GFR ( Amer) > 60 Est GFR (Non-Af Amer) > 60 Random Glucose 97 D Calcium 9.4 Total Bilirubin 0.7 AST 30 ALT 10 Alkaline Phosphatase 61 Total Protein 7.6 Albumin 4.8 Globulin 2.8 Albumin/Globulin Ratio 1.7 Assessment & Plan - Assessment and Plan (Free Text) Assessment: 23 year old female presenting to ED with worsening shortness of breath, wheezing in setting of asthma exacerbation. Plan: Acute asthma exacerbation -s/p duoneb, solumedrol 125 mg IVP in ED -wheezing noted on PE -pt currently on albuterol inhaler, nebulizer at home -symptoms suggestive of mild-moderate persistent asthma -CXR: no focal infiltrate or effusion noted -O2 via NC prn -peak flow pre/post treatment -albuterol 2.5 mg INH RQ4 osorio -prednisone 40 mg PO daily -Breo Ellipta 1 puff INH RQD -singulair 10 mg PO HS PPx, Diet, Disposition -DVT ppx: scds -GI ppx: not indicated at this time -Diet: HHD -PT on board Case discussed with Dr. Do Ha DO, PGY-1 <Pola Lei H - Last Filed: 08/28/18 11:41> Results - Vital Signs Recent Vital Signs: Last Vital Signs Temp 97.8 F 08/28/18 07:21 Pulse 96 H 08/28/18 08:50 Resp 20 08/28/18 08:50 BP 100/72 08/28/18 08:50 Pulse Ox 95 08/28/18 08:50 - Labs Result Diagrams: 08/28/18 06:50 08/28/18 06:50 Labs: Laboratory Results - last 24 hr 08/28/18 08/28/18 08/28/18 06:50 06:50 09:03 WBC 9.1 D RBC 4.74 Hgb 11.6 Hct 36.9 MCV 77.9 L D MCH 24.6 L MCHC 31.6 L RDW 17.2 H Plt Count 324 D MPV 9.4 Neut % (Auto) 35.5 L Lymph % (Auto) 31.8 [place] % (Auto) 9.6 Eos % (Auto) 22.0 H Baso % (Auto) 1.1 Neut # (Auto) 3.2 Lymph # (Auto) 2.9 [place] # (Auto) 0.9 H Eos # (Auto) 2.0 H Baso # (Auto) 0.1 Neutrophils % (Manual) 45 L Lymphocytes % (Manual) 32 Monocytes % (Manual) 5 Eosinophils % (Manual) 18 H Platelet Estimate Normal Polychromasia Slight Hypochromasia (manual) Slight Anisocytosis (manual) Slight Ovalocytes Slight Sodium 138 Potassium 3.7 Chloride 103 Carbon Dioxide 27 Anion Gap 12 BUN 12 Creatinine 0.6 L Est GFR ( Amer) > 60 Est GFR (Non-Af Amer) > 60 Random Glucose 97 D Calcium 9.4 Total Bilirubin 0.7 AST 30 ALT 10 Alkaline Phosphatase 61 Total Protein 7.6 Albumin 4.8 Globulin 2.8 Albumin/Globulin Ratio 1.7 Urine Color Yellow Urine Clarity Clear Urine pH 6.0 Ur Specific [place] 1.009 Urine Protein Negative Urine Glucose (UA) Normal Urine Ketones Negative Urine Blood Negative Urine Nitrate Negative Urine Bilirubin Negative Urine Urobilinogen Normal Ur Leukocyte Esterase Neg Urine WBC (Auto) < 1 Urine RBC (Auto) 1 Ur Squamous Epith Cells 1 Urine HCG, Qual Negative Attending/Attestation - Attestation I have personally seen and examined this patient.: Yes I have fully participated in the care of the patient.: Yes I have reviewed all pertinent clinical information: Yes Notes (Text): 08/28/18 11:39 Medical attending: Patient was seen and examined by me, agree with the above note by the resident The patient was given several treatments in the ER as well as solumedrol. We disscussed at length with patient. On exam she still has loud bilateral wheezing The patient recently has a cat and after discussing with her it is very possible this is why REguardless she will be on the Breo/Ellipta and also singulair for the time being Pola Lei
[2018-08-28] MEDS: Albuterol 0.083% Inhal Sol (2.5 mg/3 mL) UD INH SCH ×4 (09:00→20:04)
[2018-08-28 09:02] VITALS: RESP 20
[2018-08-28 09:23] LABS: HCG,QUALITATIVE URINE NEGATIVE (NEGATIVE)
[2018-08-28 09:27] LABS: SQUAMOUS EPITHIAL 1 /hpf (0-5); URINE BILIRUBIN NEGATIVE (NEGATIVE); URINE BLOOD NEGATIVE (NEGATIVE); URINE CLARITY Clear (Clear); URINE COLOR Yellow (YELLOW); URINE GLUCOSE (UA) NORMAL (Normal); URINE LEUKOCYTE ESTERASE NEG Leu/uL (Negative); URINE PROTEIN NEGATIVE (NEGATIVE); URINE UROBILINOGEN NORMAL mg/dL (0.2-1.0)
--- NOTE | 2018-08-28 09:29 | RAD ---
Date of service: 08/28/2018 HISTORY: Shortness of breath COMPARISON: 06/28/2017 FINDINGS: LUNGS: No focal infiltrate or effusion. Small nodular density at the left lung base may represent nipple shadow. Correlation with nipple markers may be helpful. PLEURA: No significant pleural effusion identified, no pneumothorax apparent. CARDIOVASCULAR: No aortic atherosclerotic calcification present. Normal cardiac size. OSSEOUS STRUCTURES: No significant abnormalities. VISUALIZED UPPER ABDOMEN: Normal. OTHER FINDINGS: None. IMPRESSION: No focal infiltrate or effusion. Small nodular density at the left lung base may represent nipple shadow. Correlation with nipple markers may be helpful.
[2018-08-28] MEDS: guaiFENesin 100 mg/5 ml Syrup UD PO PRN ×2 (17:35→21:24)
[2018-08-29] MEDS: Albuterol 0.083% Inhal Sol (2.5 mg/3 mL) UD INH SCH ×2 (00:17→03:28)
--- NOTE | 2018-08-29 06:56 | CP.PCM.PN ---
Subjective - Date & Time of Evaluation Date of Evaluation: 08/29/18 Time of Evaluation: 06:56 - Subjective Subjective: PGY-1 Medicine Progress Note for Dr. Lei Objective - Vital Signs/Intake and Output Vital Signs (last 24 hours): Temp Pulse Resp BP Pulse Ox 98.3 F 79 20 100/60 94 L 08/29/18 00:00 08/29/18 00:00 08/29/18 00:00 08/29/18 00:00 08/29/18 00:00 Intake and Output: 08/28/18 08/29/18 18:59 06:59 Intake Total 200 Balance 200 - Medications Medications: Current Medications Albuterol Sulfate (Albuterol 0.083% Inhal [place] (2.5 Mg/3 Ml) Ud) 2.5 mg INH RQ4 [facility] Last Admin: 08/29/18 03:28 Dose: 2.5 mg Fluticasone Propionate (Flonase) 2 spr VIVIAN DAILY [facility] Fluticasone/Vilanterol (Breo Ellipta 200-25 Mcg Inh) 1 puff INH RQD [facility] Guaifenesin (Robitussin) 100 mg PO Q4H PRN PRN Reason: Cough Last Admin: 08/28/18 21:24 Dose: 100 mg Montelukast Sodium (Singulair) 10 mg PO HS [facility] Last Admin: 08/28/18 21:22 Dose: 10 mg Pneumococcal Polyvalent Vaccine (Pneumovax 23 Vaccine) 0.5 ml IM .ONCE ONE Stop: 08/30/18 10:01 Prednisone (Prednisone Tab) 40 mg PO DAILY [facility] Last Admin: 08/28/18 11:38 Dose: 40 mg - Labs Labs: 08/28/18 06:50 08/28/18 06:50
[2018-08-29 07:30] LABS: BASO % 0.2 % (0.0-2.0); EOS % 0.1 % (0.0-4.0); HEMOGLOBIN 10.6 g/dL (11.0-16.0); LYMPH # 0.8 K/uL (1.0-4.3); LYMPH % 7.1 % (20.0-40.0); MEAN CELL VOLUME 77.9 fL (81.0-99.0); MEAN CORPUSCULAR HEMOGLOBIN 24.9 pg (27.0-31.0); MEAN PLATELET VOLUME 9.6 fL (7.2-11.7); MONO # 0.9 K/uL (0.0-0.8); MONO % 7.8 % (0.0-10.0); NEUT # 9.7 K/uL (1.8-7.0); NEUT % 84.8 % (50.0-75.0); PLATELET COUNT 278 K/uL (130-400); RBC 4.25 Mil/uL (3.80-5.20); RED CELL DISTRIBUTION WIDTH 17.2 % (11.5-14.5); WHITE BLOOD COUNT 11.5 K/uL (4.8-10.8)
[2018-08-29 07:52] VITALS: BP 97/61; PULSE 85; TEMP 98.1; O2SAT 95
[2018-08-29] MEDS ORDERED: Fluticasone-Vilanterol 200/25mcg Diskus INH SCH (08:00)
[2018-08-29 08:16] LABS: ALB/GLOB RATIO 1.6 (1.0-2.1); ALBUMIN 4.2 g/dL (3.5-5.0); ALT/SGPT 6 U/L (9-52); AST/SGOT 21 U/L (14-36); BLOOD UREA NITROGEN 12 mg/dL (7-17); CALCIUM 9.2 mg/dl (8.6-10.4); GFR NON-AFRICAN AMERICAN > 60
[2018-08-29 08:59] LABS: ANISOCYTOSIS SLIGHT; HYPOCHROMIC SLIGHT; LYMPHOCYTE 6 % (20-40); MONOCYTE 9 % (0-10); NEUTROPHIL 85 % (50-75); PLATELET ESTIMATE NORMAL (NORMAL); TOTAL CELLS COUNTED 100
[2018-08-29 09:00] LABS: OVALOCYTES SLIGHT
[2018-08-29] MEDS ORDERED: Fluticasone Nasal 50 mcg/Spray NAS SCH (10:00)
[2018-08-29] MEDS ORDERED: Pneumococcal 23-Valent Vaccine IM ONE (12:30)
--- NOTE | 2018-08-29 13:49 | CP.PCM.DIS ---
<Douglas Ha - Last Filed: 08/29/18 13:45> Provider - Provider Date of Admission: 08/28/18 08:21 Attending physician: Pola Lei DO Time Spent in preparation of Discharge (in minutes): 40 Diagnosis - Discharge Diagnosis (1) Asthma exacerbation Status: Acute Hospital Course - Lab Results Lab Results: Most Recent Lab Values WBC 11.5 K/uL (4.8-10.8) H 08/29/18 07:04 RBC 4.25 Mil/uL (3.80-5.20) 08/29/18 07:04 Hgb 10.6 g/dL (11.0-16.0) L 08/29/18 07:04 Hct 33.1 % (34.0-47.0) L 08/29/18 07:04 MCV 77.9 fL (81.0-99.0) L 08/29/18 07:04 MCH 24.9 pg (27.0-31.0) L 08/29/18 07:04 MCHC 32.0 g/dL (33.0-37.0) L 08/29/18 07:04 RDW 17.2 % (11.5-14.5) H 08/29/18 07:04 Plt Count 278 K/uL (130-400) 08/29/18 07:04 MPV 9.6 fL (7.2-11.7) 08/29/18 07:04 Neut % (Auto) 84.8 % (50.0-75.0) H 08/29/18 07:04 Lymph % (Auto) 7.1 % (20.0-40.0) L 08/29/18 07:04 [place] % (Auto) 7.8 % (0.0-10.0) 08/29/18 07:04 Eos % (Auto) 0.1 % (0.0-4.0) 08/29/18 07:04 Baso % (Auto) 0.2 % (0.0-2.0) 08/29/18 07:04 Neut # (Auto) 9.7 K/uL (1.8-7.0) H 08/29/18 07:04 Lymph # (Auto) 0.8 K/uL (1.0-4.3) L 08/29/18 07:04 [place] # (Auto) 0.9 K/uL (0.0-0.8) H 08/29/18 07:04 Eos # (Auto) 0.0 K/uL (0.0-0.7) 08/29/18 07:04 Baso # (Auto) 0.0 K/uL (0.0-0.2) 08/29/18 07:04 Neutrophils % (Manual) 85 % (50-75) H 08/29/18 07:04 Lymphocytes % (Manual) 6 % (20-40) L 08/29/18 07:04 Monocytes % (Manual) 9 % (0-10) 08/29/18 07:04 Eosinophils % (Manual) 18 % (0-4) H 08/28/18 06:50 Platelet Estimate Normal (NORMAL) 08/29/18 07:04 Polychromasia Slight 08/28/18 06:50 Hypochromasia (manual) Slight 08/29/18 07:04 Anisocytosis (manual) Slight 08/29/18 07:04 Ovalocytes Slight 08/29/18 07:04 Sodium 137 mmol/L (132-148) 08/29/18 07:04 Potassium 4.2 mmol/L (3.6-5.2) 08/29/18 07:04 Chloride 105 mmol/L (98-107) 08/29/18 07:04 Carbon Dioxide 23 mmol/L (22-30) 08/29/18 07:04 Anion Gap 13 (10-20) 08/29/18 07:04 BUN 12 mg/dL (7-17) 08/29/18 07:04 Creatinine 0.5 mg/dL (0.7-1.2) L 08/29/18 07:04 Est GFR ( Amer) > 60 08/29/18 07:04 Est GFR (Non-Af Amer) > 60 08/29/18 07:04 Random Glucose 112 mg/dL (65-105) H 08/29/18 07:04 Calcium 9.2 mg/dl (8.6-10.4) 08/29/18 07:04 Phosphorus 3.6 mg/dL (2.5-4.5) 08/29/18 07:04 Magnesium 1.9 mg/dL (1.6-2.3) 08/29/18 07:04 Total Bilirubin 0.6 mg/dL (0.2-1.3) 08/29/18 07:04 AST 21 U/L (14-36) 08/29/18 07:04 ALT 6 U/L (9-52) L D 08/29/18 07:04 Alkaline Phosphatase 51 U/L (38-126) 08/29/18 07:04 Total Protein 6.8 g/dL (6.3-8.3) 08/29/18 07:04 Albumin 4.2 g/dL (3.5-5.0) 08/29/18 07:04 Globulin 2.6 gm/dL (2.2-3.9) 08/29/18 07:04 Albumin/Globulin Ratio 1.6 (1.0-2.1) 08/29/18 07:04 Urine Color Yellow (YELLOW) 08/28/18 09:03 Urine Clarity Clear (Clear) 08/28/18 09:03 Urine pH 6.0 (5.0-8.0) 08/28/18 09:03 Ur Specific [place] 1.009 (1.003-1.030) 08/28/18 09:03 Urine Protein Negative mg/dL (NEGATIVE) 08/28/18 09:03 Urine Glucose (UA) Normal mg/dL (Normal) 08/28/18 09:03 Urine Ketones Negative mg/dL (NEGATIVE) 08/28/18 09:03 Urine Blood Negative (NEGATIVE) 08/28/18 09:03 Urine Nitrate Negative (NEGATIVE) 08/28/18 09:03 Urine Bilirubin Negative (NEGATIVE) 08/28/18 09:03 Urine Urobilinogen Normal mg/dL (0.2-1.0) 08/28/18 09:03 Ur Leukocyte Esterase Neg Sharlene/uL (Negative) 08/28/18 09:03 Urine WBC (Auto) < 1 /hpf (0-5) 08/28/18 09:03 Urine RBC (Auto) 1 /hpf (0-3) 08/28/18 09:03 Ur Squamous Epith Cells 1 /hpf (0-5) 08/28/18 09:03 Urine HCG, Qual Negative (NEGATIVE) 08/28/18 09:03 Influenza Typ A,B (EIA) Negative for flu a/b (NEGATIVE) 08/28/18 19:33 - Hospital Course Hospital Course: HPI: Patient is a 23 year old female with past medical history of asthma requiring 2 past hospitalizations (no prior intubations) presenting to ED with worsening shortness of breath, wheezing, dry cough for the past week. Patient states she was first told she has asthma at age 19 and typically has day-time symptoms nearly every day. This past week, symptoms have worsening, and patient states she has used home albuterol 5-10x/day with minimal relief of symptoms. She states she has albuterol inhaler and nebulizer treatments at home, denies being on steroids though may have taken Advair in past. Symptoms worsen with cold weather, physical exertion. Of note, patient has pets at home--a dog for the past 5 years and a new cat which she got a few months ago. No fevers/chills, headaches, dizziness, chest pain, palpitations, abdominal pain, nausea/vomiting/diarrhea/constipation. During course of admission: Chest XR obtained demonstrated no acute findings. Patient was given duonebulizer treatment, solumedrol in the ED. She was started on scheduled albuterol nebulizer treatments on the floor and given oral prednisone, singulair, and Breo Ellipta. Patient's wheezing continued to improve while on respiratory treatment. She was not found to be in acute respiratory distress and saturated well on room air with ambulation. Patient is medically stable for discharge to home, as per Dr. Lei. She is instructed to take all medications as prescribed. Please note, prednisone should be taken as followed: Prednisone 10 mg tablets twice daily for 4 days, followed by 10 mg tablets once daily for 3 days. Patient has been given script for both Flovent as well as Budesonide. Budesonide may be taken in lieu of Flovent, if more cost effective, per Dr. Lei. Coupons have also been provided. Please follow up at the [facility] within 3-5 days of discharge for continued monitoring of asthma and medical management. Contact information has been provided below. Please call to schedule an appointment. [facility] [place] [address] Instructions have been provided to the patient about avoiding potential factors that could be contributing to her asthma exacerbation, including new pets, environmental allergens, living conditions, and secondhand smoke. If symptoms worsen or recur, please return to the ED immediately. The following is a summary of hospital course. For full detail, please refer to EMR. - Date & Time of H&P Date of H&P: 08/29/18 Time of H&P: 13:46 Discharge Exam - Head Exam Head Exam: ATRAUMATIC, NORMAL INSPECTION, NORMOCEPHALIC - Eye Exam Eye Exam: EOMI, Normal appearance Pupil Exam: NORMAL ACCOMODATION - ENT Exam ENT Exam: Mucous Membranes Moist, Normal Exam - Neck Exam Neck exam: Full Rom, Normal Inspection - Respiratory Exam Respiratory Exam: Wheezes (mild ), NORMAL BREATHING PATTERN, UNREMARKABLE. absent: Accessory Muscle Use, Rales, Rhonchi, Respiratory Distress, Stridor - Cardiovascular Exam Cardiovascular Exam: REGULAR RHYTHM, +S1, +S2 - GI/Abdominal Exam GI & Abdominal Exam: Normal Bowel Sounds, Soft, Unremarkable. absent: Distended, Firm, Guarding, Rebound, Rigid, Tenderness - Extremities Exam Extremities exam: normal capillary refill, normal inspection, pedal pulses present - Back Exam Back exam: FULL ROM, NORMAL INSPECTION - Neurological Exam Neurological exam: Alert, CN II-XII Intact, Normal Gait, Oriented x3 - Psychiatric Exam Psychiatric exam: Normal Affect, Normal Mood - Skin Skin Exam: Dry, Intact, Normal Color, Warm Discharge Plan - Discharge Medications Prescriptions: Albuterol 0.083% [Albuterol 0.083% Inhal Agueda (2.5 mg/3 ml) UD] 2.5 mg INH Q4H #1 neb Albuterol/Ipratropium [Duoneb 3 mg/0.5 mg (3 ml) UD] 3 ml IH QID PRN #1 neb PRN Reason: Wheezing Budesonide [Pulmicort Respules] 0.5 mg IH BID #1 neb Montelukast [Singulair] 10 mg PO HS #30 tab predniSONE [Prednisone] 10 mg PO DAILY 3 Days tab - Follow Up Plan Condition: GOOD Disposition: HOME/ ROUTINE Instructions: Asthma, Adult (DC), Albuterol, Montelukast, Prednisone Additional Instructions: Patient is medically stable for discharge to home, as per Dr. Lei. She is instructed to take all medications as prescribed. Please note, prednisone should be taken as followed: Prednisone 10 mg tablets twice daily for 4 days, followed by 10 mg tablets once daily for 3 days. Patient has been given script for both Flovent as well as Budesonide. Budesonide may be taken in lieu of Flovent, if more cost effective, per Dr. Lei. Coupons have also been provided. Please follow up at the [facility] within 3-5 days of discharge for continued monitoring of asthma and medical management. Contact information has been provided below. Please call to schedule an appointment. [place] [phone] Instructions have been provided to the patient about avoiding potential factors that could be contributing to her asthma exacerbation, including new pets, environmental allergens, living conditions, and secondhand smoke. If symptoms worsen or recur, please return to the ED immediately. Referrals: Bryanna Rios MD [Staff Provider] - <Pola Lei - Last Filed: 08/29/18 14:09> Provider - Provider Date of Admission: 08/28/18 08:21 Attending physician: Pola Lei, [facility] Course - Lab Results Lab Results: Most Recent Lab Values WBC 11.5 K/uL (4.8-10.8) H 08/29/18 07:04 RBC 4.25 Mil/uL (3.80-5.20) 08/29/18 07:04 Hgb 10.6 g/dL (11.0-16.0) L 08/29/18 07:04 Hct 33.1 % (34.0-47.0) L 08/29/18 07:04 MCV 77.9 fL (81.0-99.0) L 08/29/18 07:04 MCH 24.9 pg (27.0-31.0) L 08/29/18 07:04 MCHC 32.0 g/dL (33.0-37.0) L 08/29/18 07:04 RDW 17.2 % (11.5-14.5) H 08/29/18 07:04 Plt Count 278 K/uL (130-400) 08/29/18 07:04 MPV 9.6 fL (7.2-11.7) 08/29/18 07:04 Neut % (Auto) 84.8 % (50.0-75.0) H 08/29/18 07:04 Lymph % (Auto) 7.1 % (20.0-40.0) L 08/29/18 07:04 [place] % (Auto) 7.8 % (0.0-10.0) 08/29/18 07:04 Eos % (Auto) 0.1 % (0.0-4.0) 08/29/18 07:04 Baso % (Auto) 0.2 % (0.0-2.0) 08/29/18 07:04 Neut # (Auto) 9.7 K/uL (1.8-7.0) H 08/29/18 07:04 Lymph # (Auto) 0.8 K/uL (1.0-4.3) L 08/29/18 07:04 [place] # (Auto) 0.9 K/uL (0.0-0.8) H 08/29/18 07:04 Eos # (Auto) 0.0 K/uL (0.0-0.7) 08/29/18 07:04 Baso # (Auto) 0.0 K/uL (0.0-0.2) 08/29/18 07:04 Neutrophils % (Manual) 85 % (50-75) H 08/29/18 07:04 Lymphocytes % (Manual) 6 % (20-40) L 08/29/18 07:04 Monocytes % (Manual) 9 % (0-10) 08/29/18 07:04 Eosinophils % (Manual) 18 % (0-4) H 08/28/18 06:50 Platelet Estimate Normal (NORMAL) 08/29/18 07:04 Polychromasia Slight 08/28/18 06:50 Hypochromasia (manual) Slight 08/29/18 07:04 Anisocytosis (manual) Slight 08/29/18 07:04 Ovalocytes Slight 08/29/18 07:04 Sodium 137 mmol/L (132-148) 08/29/18 07:04 Potassium 4.2 mmol/L (3.6-5.2) 08/29/18 07:04 Chloride 105 mmol/L (98-107) 08/29/18 07:04 Carbon Dioxide 23 mmol/L (22-30) 08/29/18 07:04 Anion Gap 13 (10-20) 08/29/18 07:04 BUN 12 mg/dL (7-17) 08/29/18 07:04 Creatinine 0.5 mg/dL (0.7-1.2) L 08/29/18 07:04 Est GFR ( Amer) > 60 08/29/18 07:04 Est GFR (Non-Af Amer) > 60 08/29/18 07:04 Random Glucose 112 mg/dL (65-105) H 08/29/18 07:04 Calcium 9.2 mg/dl (8.6-10.4) 08/29/18 07:04 Phosphorus 3.6 mg/dL (2.5-4.5) 08/29/18 07:04 Magnesium 1.9 mg/dL (1.6-2.3) 08/29/18 07:04 Total Bilirubin 0.6 mg/dL (0.2-1.3) 08/29/18 07:04 AST 21 U/L (14-36) 08/29/18 07:04 ALT 6 U/L (9-52) L D 08/29/18 07:04 Alkaline Phosphatase 51 U/L (38-126) 08/29/18 07:04 Total Protein 6.8 g/dL (6.3-8.3) 08/29/18 07:04 Albumin 4.2 g/dL (3.5-5.0) 08/29/18 07:04 Globulin 2.6 gm/dL (2.2-3.9) 08/29/18 07:04 Albumin/Globulin Ratio 1.6 (1.0-2.1) 08/29/18 07:04 Urine Color Yellow (YELLOW) 08/28/18 09:03 Urine Clarity Clear (Clear) 08/28/18 09:03 Urine pH 6.0 (5.0-8.0) 08/28/18 09:03 Ur Specific [place] 1.009 (1.003-1.030) 08/28/18 09:03 Urine Protein Negative mg/dL (NEGATIVE) 08/28/18 09:03 Urine Glucose (UA) Normal mg/dL (Normal) 08/28/18 09:03 Urine Ketones Negative mg/dL (NEGATIVE) 08/28/18 09:03 Urine Blood Negative (NEGATIVE) 08/28/18 09:03 Urine Nitrate Negative (NEGATIVE) 08/28/18 09:03 Urine Bilirubin Negative (NEGATIVE) 08/28/18 09:03 Urine Urobilinogen Normal mg/dL (0.2-1.0) 08/28/18 09:03 Ur Leukocyte Esterase Neg Sharlene/uL (Negative) 08/28/18 09:03 Urine WBC (Auto) < 1 /hpf (0-5) 08/28/18 09:03 Urine RBC (Auto) 1 /hpf (0-3) 08/28/18 09:03 Ur Squamous Epith Cells 1 /hpf (0-5) 08/28/18 09:03 Urine HCG, Qual Negative (NEGATIVE) 08/28/18 09:03 Influenza Typ A,B (EIA) Negative for flu a/b (NEGATIVE) 08/28/18 19:33 Attending/Attestation - Attestation I have personally seen and examined this patient.: Yes I have fully participated in the care of the patient.: Yes I have reviewed all pertinent clinical information, including history, physical exam and plan: Yes Notes (Text): 08/29/18 14:00 Medical attending: Patient was seen and examined by me. Agree with the above note by the resident The patient was not in any acute distress when I came and saw the patient The patient also did well overnight. There is still a little bit of wheezing on exam - however not as severe as previous. The patient on exam walked around the entire floor of with us and did well. She was not short of breath, no chest pain, denied palpitations, and was speaking in full sentences She will need to take medication as written above in the resident's note We also strongly advised her to try to have her new animals be kept somewhere else such as a family member or friend's house for a while to see if this will help Pola Lei
--- NOTE | 2018-08-29 20:47 | CARD ---
APPROVED REPORT Date of service: 08/28/2018 EKG Measurement Heart [id number] <Conclusion> Sinus tachycardia Otherwise normal ECG
== END 2018-08-29 12:48 | disposition home or self-care (01) ==
LOC: C.ER 06:03 → C.9E 08:21 → C.3T 08:52
PROVIDERS: ADMIT Hospitalist; ATTEND Hospitalist
DX: J45.41 Moderate persistent asthma with (acute) exacerbation (principal); F12.90 Cannabis use, unspecified, uncomplicated; Z82.5 Family history of asthma and other chronic lower respiratory diseases
CPT/HCPCS: 36415; 71045; 80053; 81001; 81025; 83735; 84100; 84703; 85025; 87804; 93005; 94640; 96374; 97116; 97161; 99285; G0378; G8978; G8979; G8980; J2930